=== PATIENT | female | born 1965 | race Caucasian/White ===

== ENCOUNTER → 2016-03-30 | Outpatient (CLI) | payer OTHER ==
--- NOTE | 2016-03-30 16:22 | REP ---
Chest x-ray: Two views. History: Shortness of breath and fatigue for 6 days. Pneumonia. Findings: There is an infiltrate in the right upper lobe consistent with pneumonia. Lung galarza are otherwise clear. Pleural angles are sharp. Heart size is normal. Pulmonary vasculature is not increased. No significant bony abnormality. Impression: Right upper lobe infiltrate consistent with pneumonia. Signed by Jose Alejandro Martinez MD 03/30/2016 04:38 P
== END | disposition home or self-care (01) ==
LOC: M RAD 12:42
PROVIDERS: ATTEND Physician Assistant
DX: R05 Cough (principal); R07.9 Chest pain, unspecified; J18.9 Pneumonia, unspecified organism

== ENCOUNTER → 2016-05-15 | Outpatient (CLI) | payer OTHER ==
[~2016-05-15] VITALS: Ht 157.5 cm; Wt 78.5 kg
[~2016-05-15] MED LIST: ASPI81TA85 PO; CYCL10TA PO; FLAG500T PO; FLAX1200 PO; IBUP-1114 PO; IBUP600T26 PO; LIDOCAINE 2% INJ 100 MG/5 ML SDV (FOR ANES.) As Ordered ONE; LIPI20TA PO; LOMO2.5T PO; NORC5TAB PO; NS 1,000 ML IV SCH; PRIL20CA9 PO; PROPOFOL 200 MG/20 ML VIAL As Ordered ONE; XANA0.5T PO; ZOFR4TAB3 PO
--- NOTE | 2016-05-15 11:55 | ROOR ---
Patient Name: Kanchan Madrigal Procedure Date: 05/15/2016 11:40 AM Date of : 1965 Age: 50 Room: [facility] Gender: Female Note Status: Finalized Procedure: Upper GI endoscopy + Biopsies Indications: Dyspepsia, Early satiety, Nausea Providers: Antonio Peng MD Referring MD: TONI MUÑOZ MD Requesting Provider: Medicines: Monitored Anesthesia Care Complications: No immediate complications. Procedure: Pre-Anesthesia Assessment: - The heart rate, respiratory rate, oxygen saturations, blood pressure, adequacy of pulmonary ventilation, and response to care were monitored throughout the procedure. The Endoscope was introduced through the mouth, and advanced to the second part of duodenum. The upper GI endoscopy was accomplished without difficulty. The patient tolerated the procedure well. Findings: The Z-line was irregular and was found 35 cm from the incisors. Multiple biopsies were obtained with cold forceps for evaluation to rule out Pinto's Esophagus randomly at the gastroesophageal junction. A small hiatal hernia was present. Localized moderate inflammation characterized by congestion (edema), erythema, granularity, aphthous ulcerations and shallow ulcerations was found in the gastric antrum. Biopsies were taken with a cold forceps for Helicobacter pylori testing. The exam of the duodenum was otherwise normal. Impression: - Z-line irregular, 35 cm from the incisors. - Small hiatal hernia. - Erosive gastritis. Biopsied. - Multiple biopsies were obtained at the gastroesophageal junction. - The examination was otherwise normal. Recommendation: - Patient has a contact number available for emergencies. The signs and symptoms of potential delayed complications were discussed with the patient. Return to normal activities tomorrow. Written discharge instructions were provided to the patient. - High fiber diet. - Discharge patient to home. - Use Prilosec (omeprazole) 40 mg PO daily. - Await pathology results. - Telephone GI clinic for pathology results in 1 week. - Return to referring physician. - The findings and recommendations were discussed with the patient's family. Antonio Peng MD Antonio Peng MD 05/15/2016 11:55:11 AM This report has been signed electronically. Number of Addenda: 0 Note Initiated On: 05/15/2016 11:40 AM Estimated Blood Loss: Estimated blood loss: none.
--- NOTE | 2016-05-15 12:11 | ROOR ---
Patient Name: Kanchan Madrigal Procedure Date: 05/15/2016 11:41 AM Date of : 1965 Age: 50 Room: [facility] Gender: Female Note Status: Finalized Procedure: Colonoscopy to Cecum Indications: Screening for colorectal malignant neoplasm Providers: Antonio Peng MD Referring MD: TONI MUÑOZ MD Requesting Provider: Medicines: Monitored Anesthesia Care Complications: No immediate complications. Procedure: Pre-Anesthesia Assessment: - The heart rate, respiratory rate, oxygen saturations, blood pressure, adequacy of pulmonary ventilation, and response to care were monitored throughout the procedure. The Colonoscope was introduced through the anus and advanced to the cecum, identified by appendiceal orifice and ileocecal valve. The colonoscopy was performed without difficulty. The patient tolerated the procedure well. The quality of the bowel preparation was excellent. Findings: The perianal and digital rectal examinations were normal. Non-bleeding internal hemorrhoids were found during retroflexion. The hemorrhoids were small and Grade I (internal hemorrhoids that do not prolapse). Multiple small and large-mouthed diverticula were found in the entire colon. The exam was otherwise without abnormality on direct and retroflexion views. Impression: - Non-bleeding internal hemorrhoids. - Diverticulosis in the entire examined colon. - The examination was otherwise normal on direct and retroflexion views. - No specimens collected. - The exam was otherwise normal to the cecum. Recommendation: - Patient has a contact number available for emergencies. The signs and symptoms of potential delayed complications were discussed with the patient. Return to normal activities tomorrow. Written discharge instructions were provided to the patient. - High fiber diet. - Discharge patient to home. - Continue present medications. - Repeat colonoscopy in 10 years for screening purposes. - Return to referring physician. - The findings and recommendations were discussed with the patient's family. Antonio Peng MD Antonio Peng MD 05/15/2016 12:10:46 PM This report has been signed electronically. Number of Addenda: 0 Note Initiated On: 05/15/2016 11:41 AM Estimated Blood Loss: Estimated blood loss: none.
[2016-05-15 12:33] VITALS: BP 141/81
== END | disposition home or self-care (01) ==
LOC: M OPP 10:42
PROVIDERS: ATTEND Internal Medicine Gastroenterology
DX: Z12.11 Encounter for screening for malignant neoplasm of colon (principal); K64.8 Other hemorrhoids; K57.30 Diverticulosis of large intestine without perforation or abscess without bleeding; R13.10 Dysphagia, unspecified; K22.8 Other specified diseases of esophagus; K44.9 Diaphragmatic hernia without obstruction or gangrene; K29.60 Other gastritis without bleeding; N80.9 Endometriosis, unspecified; F17.200 Nicotine dependence, unspecified, uncomplicated
CPT/HCPCS: 43239; 88305; 99156; 99157; G0121

== ENCOUNTER 2016-05-22 14:49 | Emergency (ER) | payer OTHER ==
[~2016-05-22] VITALS: Ht 157.5 cm; Wt 78.5 kg
[~2016-05-22 14:49] MED LIST changes: -FLAG500T PO; -IBUP600T26 PO; -LIDOCAINE 2% INJ 100 MG/5 ML SDV (FOR ANES.) As Ordered ONE; -LOMO2.5T PO; -NORC5TAB PO; -NS 1,000 ML IV SCH; -PRIL20CA9 PO; -PROPOFOL 200 MG/20 ML VIAL As Ordered ONE; -ZOFR4TAB3 PO
[2016-05-22] MEDS ORDERED: PRIL20CA9 PO (15:00)
[2016-05-22] MEDS ORDERED: ONDANSETRON 4MG/2ML VIAL (J2405) IV ONE (17:00)
[2016-05-22] MEDS ORDERED: FAMOTIDINE IV BAG 20 MG in APPROPRIATE DILUENT 1 EA IV ONE (17:00)
[2016-05-22] MEDS ORDERED: NS 1,000 ML IV ONE (17:00)
[2016-05-22] MEDS ORDERED: KETOROLAC 30 MG/ML VIAL (J1885) IV ONE (17:00)
[2016-05-22] MEDS ORDERED: MORPHINE 2 MG/ML 1ML SYRINGE IV PRN (17:00)
[2016-05-22] MEDS ORDERED: FAMOTIDINE/NS 20 MG/50 ML BAG (S0028) As Ordered ONE (17:02)
[2016-05-22 17:23] LABS: BASO % 0.4 % (0.0-1.0); EOS # 0.2 K/mm3 (0.0-0.50); EOS % 1.4 % (0.0-3.0); LARGE UNSTAINED CELL # 0.2 K/mm3 (0.0-0.4); LARGE UNSTAINED CELL % 1.2 % (0.0-4.0); LYMPH # 2.2 K/mm3 (1.5-4.5); LYMPH % 18.3 % (24.0-44.0); MEAN CORPUSCULAR HEMOGLOBIN 31.4 pg (27.0-33.0); MEAN CORPUSCULAR HGB CONC 33.1 g/dl (32.0-36.5); MEAN CORPUSCULAR VOLUME 94.7 fl (80.0-96.0); MONO # 0.4 K/mm3 (0.0-0.8); MONO % 3.3 % (0.0-5.0); NEUTROPHILS # 9.1 K/mm3 (1.8-7.7); NEUTROPHILS % 75.4 % (36.0-66.0); PLATELET COUNT, AUTOMATED 251 k/mm3 (150-450); RED CELL DISTRIBUTION WIDTH 12.3 % (11.5-14.5); WHITE BLOOD COUNT 12.1 K/mm3 (4.0-10.0)
[2016-05-22 17:51] LABS: ALBUMIN 3.8 GM/DL (3.2-5.2); ALKALINE PHOSPHATASE 105 U/L (45-117); ALT/SGPT 35 U/L (12-78); AMYLASE 36 U/L (25-115); ANION GAP 9 MEQ/L (8-16); AST/SGOT 26 U/L (15-37); BILIRUBIN,DIRECT < 0.1 MG/DL (0.0-0.2); BILIRUBIN,TOTAL 0.5 MG/DL (0.2-1.0); BLOOD UREA NITROGEN 15 MG/DL (7-18); CARBON DIOXIDE LEVEL 25 MEQ/L (21-32); CHLORIDE LEVEL 107 MEQ/L (98-107); GLOMERULAR FILTRATION RATE > 60.0 (>51); GLUCOSE, FASTING 124 MG/DL (70-105); POTASSIUM SERUM 3.7 MEQ/L (3.5-5.1); SODIUM LEVEL 141 MEQ/L (136-145); TOTAL PROTEIN 7.6 GM/DL (6.4-8.2)
[2016-05-22] MEDS ORDERED: IBUP600T26 PO (19:20)
[2016-05-22] MEDS ORDERED: ZOFR4TAB3 PO (19:20)
[2016-05-22 19:59] VITALS: BP 139/72
--- NOTE | 2016-05-23 07:00 | REP ---
ACUTE ABDOMINAL SERIES: 05/22/2016. Comparison: chest x-ray 03/30/2016. Clinical history: Abdominal pain. Findings: PA chest: Lungs are adequately inflated. There is no infiltrate, effusion, atelectasis or mass. Heart, mediastinal and hilar contours are normal. Aorta unremarkable for age. Airway intact. Visualized bones intact. No free air. Flat upright abdomen. There are some minor vascular calcifications in iliac vessels. A few pelvic phleboliths. I see no definite stones over the renal fossae or expected course of the ureters. There are small marginal osteophytes. There are degenerative changes in the spine without destructive lesion or acute compression deformity. Pelvic ring intact. SI joints, sacral ala and foramina intact. Impression: 1. Nonspecific gas pattern without obstruction, mass or free air. 2. A few pelvic phleboliths and vascular calcifications of the iliac arteries. No acute bony finding. 3. Negative PA chest. Signed by Preet Tolentino MD 05/23/2016 04:18 P
[2016-05-23] MEDS ORDERED: NORC5TAB PO ×2 (12:49→12:58)
[2016-05-23] MEDS ORDERED: LOMO2.5T PO ×2 (12:49→12:58)
[2016-05-23] MEDS ORDERED: FLAG500T PO (12:49)
== END 2016-05-22 20:11 | disposition home or self-care (01) ==
LOC: M ED 16:59
DX: R11.2 Nausea with vomiting, unspecified (principal); E11.9 Type 2 diabetes mellitus without complications; E78.5 Hyperlipidemia, unspecified; G89.29 Other chronic pain; K21.9 Gastro-esophageal reflux disease without esophagitis; Z79.899 Other long term (current) drug therapy; Z79.82 Long term (current) use of aspirin; Z88.5 Allergy status to narcotic agent; Z88.8 Allergy status to other drugs, medicaments and biological substances
CPT/HCPCS: 74022; 80048; 80076; 81001; 82150; 83605; 83690; 85025; 87086; 96365; 96366; 96375; 99283; J1885; J2405

== ENCOUNTER 2016-05-23 09:06 | Emergency (ER) | payer OTHER ==
[~2016-05-23] VITALS: Ht 157.5 cm; Wt 77.1 kg
[~2016-05-23 09:06] MED LIST changes: +IBUP600T26 PO; +PRIL20CA9 PO; +ZOFR4TAB3 PO
[2016-05-23] MEDS ORDERED: NS 1,000 ML IV SCH (09:37)
[2016-05-23] MEDS ORDERED: ONDANSETRON 4MG/2ML VIAL (J2405) IV ONE (09:45)
[2016-05-23] MEDS ORDERED: MORPHINE 4 MG/ML 1ML SYRINGE IV PRN (09:45)
[2016-05-23 10:30] LABS: ALBUMIN 3.5 GM/DL (3.2-5.2); ALBUMIN/GLOBULIN RATIO 1.09 (1.00-1.93); ALKALINE PHOSPHATASE 92 U/L (45-117); ALT/SGPT 29 U/L (12-78); ANION GAP 11 MEQ/L (8-16); AST/SGOT 20 U/L (15-37); BILIRUBIN,DIRECT 0.1 MG/DL (0.0-0.2); BILIRUBIN,TOTAL 0.7 MG/DL (0.2-1.0); BLOOD UREA NITROGEN 16 MG/DL (7-18); CALCIUM LEVEL 8.8 MG/DL (8.5-10.1); CARBON DIOXIDE LEVEL 23 MEQ/L (21-32); CHLORIDE LEVEL 108 MEQ/L (98-107); GLOMERULAR FILTRATION RATE > 60.0 (>51); GLUCOSE, FASTING 101 MG/DL (70-105); POTASSIUM SERUM 4.1 MEQ/L (3.5-5.1); SODIUM LEVEL 142 MEQ/L (136-145); TOTAL PROTEIN 6.7 GM/DL (6.4-8.2)
[2016-05-23 10:37] LABS: BASO % 0.4 % (0.0-1.0); EOS # 0.1 K/mm3 (0.0-0.50); EOS % 1.2 % (0.0-3.0); LARGE UNSTAINED CELL # 0.1 K/mm3 (0.0-0.4); LARGE UNSTAINED CELL % 0.6 % (0.0-4.0); LYMPH # 1.7 K/mm3 (1.5-4.5); MEAN CORPUSCULAR HEMOGLOBIN 32.1 pg (27.0-33.0); MEAN CORPUSCULAR HGB CONC 33.7 g/dl (32.0-36.5); MEAN CORPUSCULAR VOLUME 95.2 fl (80.0-96.0); MONO # 0.4 K/mm3 (0.0-0.8); MONO % 4.4 % (0.0-5.0); NEUTROPHILS # 7.1 K/mm3 (1.8-7.7); NEUTROPHILS % 75.5 % (36.0-66.0); PLATELET COUNT, AUTOMATED 213 k/mm3 (150-450); RED CELL DISTRIBUTION WIDTH 12.5 % (11.5-14.5); WHITE BLOOD COUNT 9.4 K/mm3 (4.0-10.0)
[2016-05-23] MEDS ORDERED: ISOVUE-370 76% 100ML VIAL (Q9967) As Ordered ONE (11:11)
--- NOTE | 2016-05-23 11:52 | REP ---
Reason: Rectal bleeding. No prior CTs for comparison. Contrast utilized: 100 mL Isovue 370. Lung bases are clear. The liver, gallbladder, spleen, pancreas, adrenal glands, and kidneys are within normal limits. The abdominal aorta and para-aortic regions are within normal limits. There is no free fluid or free air in the abdomen. The bowel loops and their mesenteries are within normal limits. There is no evidence of intestinal obstruction. The colon is collapsed and there are a few scattered diverticula particularly in the descending colon. CT PELVIS: The pelvic bowel loops and their mesenteries are within normal limits. There are a few scattered sigmoid colon diverticula. There is no free fluid or free air. There is no pelvic mass or adenopathy. There are a few scattered incidental pelvic phleboliths. The appendix is well visualized and it is unremarkable. Bone window technique throughout the exam shows the osseous structures to be within normal limits for the patient's age. IMPRESSION: There is no evidence of acute intra-abdominal or intrapelvic disease with findings as described above. Signed by Thong Weeks DO 05/23/2016 11:54 A
[2016-05-23] MEDS ORDERED: LOMO2.5T PO ×2 (12:49→12:58)
[2016-05-23] MEDS ORDERED: FLAG500T PO (12:49)
[2016-05-23] MEDS ORDERED: NORC5TAB PO ×2 (12:49→12:58)
[2016-05-23 13:18] VITALS: BP 145/58
[2016-05-23] MEDS ORDERED: NORCO, ANEXSIA 5/325MG TABLET (HYDROcodone/ACETAMINOPHEN) PO ONE (13:45)
== END 2016-05-23 13:43 | disposition home or self-care (01) ==
LOC: M ED 09:51
DX: A04.7 Enterocolitis due to Clostridium difficile (principal); K21.9 Gastro-esophageal reflux disease without esophagitis; F41.9 Anxiety disorder, unspecified; Z79.82 Long term (current) use of aspirin; Z79.899 Other long term (current) drug therapy; Z88.5 Allergy status to narcotic agent; Z88.8 Allergy status to other drugs, medicaments and biological substances; F17.210 Nicotine dependence, cigarettes, uncomplicated; M54.9 Dorsalgia, unspecified
CPT/HCPCS: 36415; 74177; 80048; 80076; 83690; 85025; 86850; 86901; 87507; 93041; 96361; 96374; 96375; 99284; J2405; Q9967